=== PATIENT | female | born 1995 | race Caucasian/White ===

== ENCOUNTER 2020-02-13 08:37 | Emergency (ER) | payer OTHER ==
[~2020-02-13] VITALS: Ht 162.6 cm; Wt 51.0 kg
--- NOTE | 2020-02-13 09:07 | PHYS DOC ---
Past History Past Medical History: No Pertinent History (FAIAZN SINGH MD) Drug Use: None (FAIZAN SINGH MD) General Adult EDM: Chief Complaint: altered mental status HPI: HPI: Patient is a 24-year-old female who arrives with chief complaint of altered mental status. Patient over the last several days has had increase confusion with tangential thinking and some hyperreligious thoughts. thinks she has had some sleep deprivation and had a similar episode about 3 weeks ago and was seen at [place] and had imaging and a spinal tap done at that time. Patient and denies any other past medical history. Patient history physical review of systems are unobtainable due to her tangential thinking and altered mental status (FAIZAN SINGH MD) Review of Systems: Review of Systems: Review of systems is unobtainable due to patient's altered mental status and psychosis. Patient denies any specific pain or recent illness but is unreliable in her history. (FAIZAN SINGH MD) Physical Exam: PE: Constitutional: Well developed, well nourished, no acute distress, non-toxic appearance. [] HENT: Normocephalic, atraumatic, bilateral external ears normal, no trismus nose normal. [] Eyes: PERRLA, EOMI, conjunctiva normal, no discharge. [] Neck: Normal range of motion, no tenderness, supple, no stridor. [] Cardiovascular:Heart rate regular rhythm, peripheral pulses are intact cap refill is brisk Lungs & Thorax: Bilateral breath sounds clear, no respiratory distress Abdomen: Nondistended nontender Skin: Warm, dry, no erythema, no rash. [] Back: No tenderness, no CVA tenderness. [] Extremities: No tenderness, no cyanosis, no clubbing, ROM intact, no edema. [] Neurologic: Alert but confused, normal motor function, normal sensory function, no focal deficits noted. [] Psychologic: Bizarre affect, tangential thinking, grandiose talk, flight of ideas, appears to be responding to internal stimuli (FAZIAN SINGH MD) Current Patient Data: Labs: Laboratory Tests Test 02/13/20 09:00 02/13/20 09:16 02/13/20 09:43 02/13/20 10:48 Urine Collection Type Unknown Urine Color Yellow Urine Clarity Hazy Urine pH 6.5 Urine Specific Ma[place]in 1.015 Urine Protein Neg Urine Glucose (UA) Neg mg/dL Urine Ketones (Stick) 15 mg/dL Urine Blood Neg Urine Nitrite Neg Urine Bilirubin Neg Urine Urobilinogen Dipstick 0.2 mg/dL Urine Leukocyte Esterase Mod Urine RBC 0 /HPF Urine WBC 5-10 /HPF Urine Squamous Epithelial Cells Mod /LPF Urine Bacteria Few /HPF Urine Opiates Screen Neg Urine Methadone Screen Neg Urine Barbiturates Neg Urine Phencyclidine Screen Neg Urine Amphetamine/Methamphetamine Neg Urine Benzodiazepines Screen Neg Urine Cocaine Screen Neg Urine Cannabinoids Screen Neg Urine Ethyl Alcohol Neg Bedside Urine HCG, Qualitative hcg negative White Blood Count 9.7 x10^3/uL Red Blood Count 4.91 x10^6/uL Hemoglobin 15.5 g/dL Hematocrit 46.7 % Mean Corpuscular Volume 95 fL Mean Corpuscular Hemoglobin 32 pg Mean Corpuscular Hemoglobin Concent 33 g/dL Red Cell Distribution Width 13.3 % Platelet Count 379 x10^3/uL Neutrophils (%) (Auto) 81 % Lymphocytes (%) (Auto) 13 % Monocytes (%) (Auto) 6 % Eosinophils (%) (Auto) 0 % Basophils (%) (Auto) 0 % Neutrophils # (Auto) 7.8 x10^3uL Lymphocytes # (Auto) 1.3 x10^3/uL Monocytes # (Auto) 0.6 x10^3/uL Eosinophils # (Auto) 0.0 x10^3/uL Basophils # (Auto) 0.0 x10^3/uL Sodium Level 140 mmol/L Potassium Level 4.2 mmol/L Chloride Level 102 mmol/L Carbon Dioxide Level 25 mmol/L Anion Gap 13 Blood Urea Nitrogen 13 mg/dL Creatinine 1.0 mg/dL Estimated GFR (Cockcroft-Gault) 67.0 BUN/Creatinine Ratio 13 Glucose Level 134 mg/dL Calcium Level 10.0 mg/dL Total Bilirubin 0.5 mg/dL Aspartate Amino Transf (AST/SGOT) 20 U/L Alanine Aminotransferase (ALT/SGPT) 27 U/L Alkaline Phosphatase 59 U/L Total Protein 8.3 g/dL Albumin 4.5 g/dL Albumin/Globulin Ratio 1.2 Salicylates Level < 2.8 mg/dL Salicylate Last Dose Date Unknown Salicylate Last Dose Time Unknown Acetaminophen Level < 2 mcg/mL Acetaminophen Last Dose Date Unknown Acetaminophen Last Dose Time Unknown Ethyl Alcohol Level < 10 mg/dL SARS-CoV-2 Antigen (Rapid) Negative Current Medications Medications (Trade) Dose Ordered Sig/Sanjiv Route PRN Reason Start Time Stop Time Status Last Admin Dose Admin Lorazepam (Ativan Inj) 1 mg 1X ONCE IVP 02/13/20 09:15 02/13/20 09:27 DC 02/13/20 09:15 Sodium Chloride 1,000 ml @ 1,000 mls/hr 1X ONCE IV 02/13/20 09:15 02/13/20 10:14 DC 02/13/20 09:15 Lorazepam (Ativan Inj) 2 mg STK-MED ONCE .ROUTE 02/13/20 09:27 02/13/20 09:28 DC Ziprasidone (Geodon Im) 20 mg 1X ONCE IM 02/13/20 09:45 02/13/20 10:03 DC Vital Signs: Vital Signs Date Time Temp Pulse Resp B/P (MAP) Pulse Ox O2 Delivery O2 Flow Rate FiO2 02/13/20 10:12 98.1 106 18 118/70 (86) 98 Room Air (FAIZAN SINGH MD) EKG: EKG: EKG interpreted by [facility] normal sinus rhythm with a rate of 83, normal axis, normal intervals, nonspecific ST changes [] (FAIZAN SINGH MD) Radiology/Procedures: Radiology/Procedures: [] (FAIZAN SINGH MD) Heart Score: Risk Factors: Risk Factors: DM, Current or recent (<one month) smoker, HTN, HLP, family history of CAD, obesity. Risk Scores: Score 0 - 3: 2.5% MACE over next 6 weeks - Discharge Home Score 4 - 6: 20.3% MACE over next 6 weeks - Admit for Clinical Observation Score 7 - 10: 72.7% MACE over next 6 weeks - Early Invasive Strategies (FAIZAN SINGH MD) Course & Med Decision Making: Course & Med Decision Making Pertinent Labs and Imaging studies reviewed. (See chart for details) [] 9:34 AM: Patient escalating becoming agitated and very aggressive. Patient needS to be medicated and physically restrained, code wu has been activated. Patient unable to be talked down with verbal de-escalation. Records reviewed from: [facility], patient had a unremarkable neurological consultation with normal EEG MRI and spinal tap. This was done within the last month. Patient medically stable and seen by the [facility] health assessment team. Peers that she has a bed at [facility] waiting final approval. Care was signed over Dr. Yuko balderas on final disposition. (FAIZAN SINGH MD) Course & Med Decision Making I assumed care of patient from off going physician ER work-up to date, patient still acutely psychotic and pending inpatient psychiatric transfer Patient verbally redirectable throughout entirety of my shift but did have x2 episodes of erratic behavior and acute psychosis that required medical intervention. First episode required 10 mg IM Zyprexa and later 1 mg IV Ativan administered with resolution of symptoms I was notified that patient was accepted to [facility] under the care of Dr. Magallon with transport pending this upcoming morning at 10 AM Patient updated on this plan of care and was amenable, remains an involuntary hold at present At end of my shift, comprehensive signout was given to ongoing physician. They are aware of patient's involuntary hold and pending inpatient psychiatric trans [place] at this time. Please defer to their documentation regarding future care of patient while in our ER setting (LALO SIU DO) Course & Med Decision Making I have received signout on the patient's emergency department care from Dr. Siu. We discussed the history, physical exam findings, completed and pending laboratory results and imaging studies. We have also discussed the current treatment plan and expected clinical course. Please refer to further update notes for additional information regarding the patient's final diagnosis and disposition. In brief patient is a 24-year-old female who presented with a chief complaint of psychosis. Upon my initial assessment she is alert and oriented x3. She is intermittently tearful. Patient has already been medically cleared by previous providers. She has been evaluated psychiatric assessment team. She will be transferred to [facility] for inpatient treatment. She has remained clinically and hemodynamically stable during my observation. No medications were administered. (LISHA PEARL DO) Dragon Disclaimer: Dragon Disclaimer: This electronic medical record was generated, in whole or in part, using a voice recognition dictation system. (FAIZAN SINGH MD) Departure Departure: Impression: Primary Impression: Psychosis Qualified Codes: F29 - Unspecified psychosis not due to a substance or known physiological condition Disposition: 65 DC/TRF TO PSYCH HOSP ([facility]) Admitting Physician: Other (dr barreto) (LALO SIU DO) Condition: STABLE Referrals: PCP,NO (PCP) FAIZAN SINGH MD Feb 13, 2020 09:07 LALO SIU DO Feb 14, 2020 02:26 LISHA PEARL DO Feb 14, 2020 13:51
[2020-02-13] MEDS ORDERED: IV NORMAL SALINE 1,000ML 1,000 ML IV ONE (09:15)
[2020-02-13 09:32] LABS: BARBITURATES NEG (NEG); BENZODIAZEPINES NEG (NEG); CANNABINOIDS NEG (NEG); COCAINE NEG (NEG); METHADONE NEG (NEG); OPIATES NEG (NEG); PHENCYCLIDINE NEG (NEG)
[2020-02-13 09:33] LABS: BILIRUBIN,URINE NEG (NEG); CLARITY,URINE HAZY; COLOR,URINE YELLOW; GLUCOSE,URINE NEG (NEG)
[2020-02-13 09:34] LABS: BACTERIA,URINE FEW /HPF (0-FEW); NITRITE,URINE NEG (NEG); RBC,URINE 0 /HPF (0-2); SQUAMOUS EPITHELIAL CELL,UR MOD /LPF; UROBILINOGEN,URINE 0.2 mg/dL (0.2 mg/dL)
[2020-02-13 09:36] LABS: AMPHETAMINE/METHAMPHETAMINE NEG (NEG)
[2020-02-13] MEDS ORDERED: ZIPRASIDONE IM 20 MG VIAL. IM ONE (09:45)
[2020-02-13 09:57] LABS: BASO % 0 % (0-3); EOS % 0 % (0-3); HEMATOCRIT 46.7 % (36.0-47.0); HEMOGLOBIN 15.5 g/dL (12.0-15.5); LYMPH # 1.3 x10^3/uL (1.0-4.8); LYMPH % 13 % (24-48); MEAN CORPUSCULAR HEMOGLOBIN 32 pg (25-35); MEAN CORPUSCULAR HGB CONC 33 g/dL (31-37); MEAN CORPUSCULAR VOLUME 95 fL (79-100); MONO # 0.6 x10^3/uL (0.0-1.1); MONO % 6 % (0-9); NEUT # 7.8 x10^3uL (1.8-7.7); NEUT % 81 % (31-73); PLATELET COUNT 379 x10^3/uL (140-400); RED BLOOD COUNT 4.91 x10^6/uL (3.50-5.40); RED CELL DISTRIBUTION WIDTH 13.3 % (11.5-14.5); WHITE BLOOD COUNT 9.7 x10^3/uL (4.0-11.0)
[2020-02-13 10:09] LABS: POTASSIUM 4.2 mmol/L (3.5-5.1)
[2020-02-13 10:12] VITALS: BP 118/70
[2020-02-13 10:13] LABS: ACETAMIN < 2 mcg/mL (10-30); ETHANOL < 10 mg/dL (0-10); SALIC < 2.8 mg/dL (2.8-20.0)
[2020-02-13 10:14] LABS: ALBUMIN 4.5 g/dL (3.4-5.0); ALBUMIN/GLOBULIN RATIO 1.2 (1.0-1.7); TOTAL BILIRUBIN 0.5 mg/dL (0.2-1.0); TOTAL PROTEIN 8.3 g/dL (6.4-8.2)
--- NOTE | 2020-02-13 14:37 | EKG ---
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
[2020-02-13] MEDS ORDERED: OLANZapine IM 10 MG VIAL. IM ONE ×2 (21:11→21:30)
== END 2020-02-14 13:56 ==
LOC: ER 08:37
DX: F28 Other psychotic disorder not due to a substance or known physiological condition (principal); R41.82 Altered mental status, unspecified; Z20.818 Contact with and (suspected) exposure to other bacterial communicable diseases
CPT/HCPCS: 36415; 80053; 80307; 80329; 81001; 81025; 85025; 87086; 87426; 93005; 96361; 96372; 96374; 96376; 99285; C9803; G0480; J2060; J3490; J7030; U0003